=== PATIENT | male | born 1995 | race Caucasian/White ===

== ENCOUNTER 2017-11-17 20:37 | Emergency (ER) | payer BC ==
[~2017-11-17] VITALS: Ht 185.4 cm; Wt 65.9 kg
[2017-11-17 20:38] VITALS: BP 118/66; TEMP 97
[2017-11-17 21:19] VITALS: PULSE 80
== END 2017-11-17 21:38 | disposition home or self-care (01) ==
LOC: COL.ER 20:37
DX: S93.402A Sprain of unspecified ligament of left ankle, initial encounter (principal); S63.502A Unspecified sprain of left wrist, initial encounter; F17.220 Nicotine dependence, chewing tobacco, uncomplicated; R40.2412 Glasgow coma scale score 13-15, at arrival to emergency department; Z98.890 Other specified postprocedural states; V80.010A Animal-rider injured by fall from or being thrown from horse in noncollision accident, initial encounter